=== PATIENT | male | born 1955 | race Hispanic/Latino ===

== ENCOUNTER 2021-07-12 06:47 | Day surgery (SDC) | payer MEDICARE ==
[2021-07-11 13:24] LABS: BASOPHILS % (AUTO) 0.5 % (0.0-5.0); HEMATOCRIT 43.6 % (42-54); LYMPHOCYTES % (AUTO) 28.6 % (21.0-51.0); MEAN CORPUSCULAR HEMOGLOBIN 28.6 pg (27.0-33.0); MEAN CORPUSCULAR HGB CONC 35.3 g/dL (32.0-36.0); MEAN CORPUSCULAR VOLUME 80.9 fL (79-99); MONOCYTES % (AUTO) 4.7 % (3.0-13.0); NEUTROPHILS % (AUTO) 63.9 % (40.0-77.0); PLATELET COUNT (AUTO) 172 K/uL (130-400); RED BLOOD CELL COUNT(AUTO) 5.39 MIL/uL (4.50-6.20); RED CELL DISTRIBUTION WIDTH 13.7 % (11.0-15.5); WHITE BLOOD COUNT (AUTO) 7.7 K/uL (4.8-10.8)
[2021-07-11 13:36] LABS: INR 0.99 (0.85-1.15); PROTHROMBIN TIME 10.8 SEC (9.6-11.6)
[2021-07-11 13:42] LABS: ALBUMIN 3.5 g/dL (3.5-5.0); BILIRUBIN,DIRECT 0.1 mg/dL (0.0-0.3); BILIRUBIN,TOTAL 0.4 mg/dL (0.2-1.0); CREATININE 1.2 mg/dL (0.5-1.5); POTASSIUM 4.1 mmol/L (3.5-5.1); TOTAL PROTEIN, SERUM 7.7 g/dL (6.0-8.3)
[2021-07-11 14:43] VITALS: BP_SYST 169; BP_SYST 206; BP_DIAS 70; BP_DIAS 94
[2021-07-12] VITALS (18 sets, daily range): BP systolic 74–176; BP diastolic 51–92
[~2021-07-12] VITALS: Ht 177.8 cm; Wt 106.5 kg
[~2021-07-12 06:47] MED LIST: ACET-2079 PO; AMLO-257 PO; ATOR40TA71 PO; INSU100I26 SQ; METF-446 PO; NAPR-1023 PO
[2021-07-12] MEDS ORDERED: CEFAZOLIN SODIUM 1 GM VIAL ONE (07:47)
[2021-07-12] MEDS ORDERED: 0.9%NACL 1000ML 1,000 ML IV ONE (07:47)
[2021-07-12] MEDS ORDERED: BUPIVACAINE/PF 0.5% 30ML VIAL ONE (08:10)
[2021-07-12] MEDS ORDERED: BUPIVACAINE/PF 0.5% 10ML VIAL ONE (08:10)
[2021-07-12] MEDS ORDERED: ONDANSETRON 4MG INJ ONE (09:29)
[2021-07-12] MEDS ORDERED: PROPOFOL 10 MG/ML 20ML VIAL IV ONE (09:29)
[2021-07-12] MEDS ORDERED: GLYCOPYRROLATE 1 MG/5 ML SYRINGE ONE (09:29)
[2021-07-12] MEDS ORDERED: FENTANYL CITRATE PF 50 MCG/1 ML 2ML VIAL ONE (09:30)
[2021-07-12] MEDS ORDERED: CEFAZOLIN SODIUM 2 GM VIAL IV ONE (09:30)
[2021-07-12] MEDS ORDERED: MIDAZOLAM HCL 1 MG/ML 2ML VIAL ONE (09:32)
[2021-07-12] MEDS ORDERED: BUPIVACAINE/PF 0.5% 30ML VIAL INJ ONE (10:03)
[2021-07-12] MEDS ORDERED: ROCURONIUM 10MG/1ML SYR 10 MG/ML ML ONE (10:04)
[2021-07-12] MEDS ORDERED: NEOSTIGMINE 5MG/5ML SYR IV ONE (10:23)
[2021-07-12] MEDS ORDERED: MEPERIDINE-PF 25 MG/ML SYG ONE (10:24)
[2021-07-12] MEDS ORDERED: MORPHINE 2 MG SYG ONE (11:26)
== END 2021-07-12 12:25 | disposition home or self-care (01) ==
LOC: DAH 06:47
PROVIDERS: ATTEND Surgery
DX: K80.64 Calculus of gallbladder and bile duct with chronic cholecystitis without obstruction (principal); K42.0 Umbilical hernia with obstruction, without gangrene; I10 Essential (primary) hypertension; E78.5 Hyperlipidemia, unspecified; E11.9 Type 2 diabetes mellitus without complications; Z98.890 Other specified postprocedural states; Z72.89 Other problems related to lifestyle; Z79.4 Long term (current) use of insulin; Z80.9 Family history of malignant neoplasm, unspecified; Z79.899 Other long term (current) drug therapy; Z79.01 Long term (current) use of anticoagulants
CPT/HCPCS: 36415; 47562; 49587; 71045; 80048; 80076; 82948 ×2; 85025; 85610; 87635; 93005; A4213; A4215; A4221; A4222; A4223; A4600; A4649 ×2; A4663; A6260; C1769 ×3; C9803; G0168; J0690 ×2; J2175; J2250; J2405; J2704; J2710; J3010; J3490 ×3; J7030 ×2